=== PATIENT | male | born 1975 | race Two or more races ===

== ENCOUNTER → 2018-01-10 | Outpatient (CLI) | payer SELFPAY ==
--- NOTE | 2018-01-10 11:54 | RAD ---
HISTORY: Employee physical Study: PA chest: Single-view Comparison: None Findings: The heart, lungs, mediastinum and bony structures are normal for the patient's age. IMPRESSION: 1. No radiographic evidence of acute cardiopulmonary disease. Reported By:
== END ==
LOC: RAD 11:20
PROVIDERS: ATTEND Nurse Practitioner Family
DX: Z02.6 Encounter for examination for insurance purposes (principal)
CPT/HCPCS: 71045